=== PATIENT | male | born 1965 | race Two or more races ===

== ENCOUNTER 2022-12-31 10:03 | Outpatient (CLI) | payer OTHER | END 2022-12-31 14:19 | disposition home or self-care (01) | LOC: LAB 10:03 | DX: E11.9 Type 2 diabetes mellitus without complications (principal); E78.5 Hyperlipidemia, unspecified; E03.9 Hypothyroidism, unspecified; E55.9 Vitamin D deficiency, unspecified; D64.9 Anemia, unspecified; C18.9 Malignant neoplasm of colon, unspecified; E72.11 Homocystinuria; I63.9 Cerebral infarction, unspecified; D68.9 Coagulation defect, unspecified; E83.42 Hypomagnesemia; M77.9 Enthesopathy, unspecified; E26.01 Conn's syndrome ==